=== PATIENT | female | born 1960 | race African-American/Black ===

== ENCOUNTER 2017-08-31 09:49 | Emergency (ER) | payer OTHER ==
[~2017-08-31] VITALS: Ht 170.2 cm; Wt 69.4 kg
[~2017-08-31 09:49] MED LIST: BD ULTRA-FINE1 EAC2 MC; BENADRYL50 MG PO; COLACE100 MG PO; DIFLUCAN150 MG PO; FLEXERIL10 MG PO; GOLYTELY SOLU4000 ML PO; JANUVIA100 MG PO; JANUVIA25 MG PO; KEFLEX500 MG PO; LANTUS 3 M100 UNITS1 SC; LANTUS 3 M100 UNITS1 SQ; METFORMIN; METFORMIN HCL1000 MG PO; METFORMIN HCL500 MG PO; MOTRIN600 MG PO; NOHOMEMEDS; PRAVASTATIN SOD10 MG PO; PREDNISONE20 MG PO; ULTRAM50 MG PO; ZOCOR20 MG PO; ZOFRAN4 MG PO; [UNRECOGNIZED DRUG - OTHER] MC
[2017-08-31 11:08] LABS: APPEARANCE SL.HAZY ((CLEAR)); BILIRUBIN NEGATIVE; BLOOD NEGATIVE; COLOR YELLOW ((YELLOW)); GLUCOSE (STRIP) 150; KETONES NEGATIVE; LEUKOCYTES SMALL; NITRITE NEGATIVE; PROTEIN (STRIP) 30; SPECIFIC GRAVITY 1.032 (1.000-1.030); UROBILINOGEN 0.2 MG/DL (0.2-1.0)
[2017-08-31 11:28] LABS: BACTERIA RARE /HPF; EPITHELIAL CELLS 1+ /HPF; MUCUS 2+ /LPF; RED BLOOD CELLS NONE SEEN /HPF (0-5); UCUL ADDED? NO; WHITE BLOOD CELLS RARE /HPF (0-5)
[2017-08-31] MEDS ORDERED: DIFLUCAN150 MG PO (11:43)
[2017-08-31] MEDS ORDERED: MONISTAT SOOTHI42 GM TP (11:45)
[2017-08-31 11:56] VITALS: BP 122/77
== END 2017-08-31 11:58 | disposition home or self-care (01) ==
LOC: EME 09:49
PROVIDERS: Nurse Practitioner Family
DX: N76.0 Acute vaginitis (principal); E11.9 Type 2 diabetes mellitus without complications; Z79.4 Long term (current) use of insulin; J45.909 Unspecified asthma, uncomplicated; E78.5 Hyperlipidemia, unspecified
CPT/HCPCS: 81003; 99281; 99284